=== PATIENT | male | born 1960 | race Caucasian/White ===

== ENCOUNTER → 2018-06-28 | Outpatient (CLI) | payer OTHER | END | disposition home or self-care (01) | LOC: CDC 09:45 | DX: Z01.810 Encounter for preprocedural cardiovascular examination (principal); G56.22 Lesion of ulnar nerve, left upper limb; S52.132D Displaced fracture of neck of left radius, subsequent encounter for closed fracture with routine healing; I44.0 Atrioventricular block, first degree; I49.3 Ventricular premature depolarization | CPT/HCPCS: 93000 ==